=== PATIENT | male | born 1960 | race African-American/Black ===

== ENCOUNTER 2018-06-30 15:06 | Inpatient (IN) ==
[2018-06-30] MEDS ORDERED: ASPIRIN PO ONE (15:23)
[2018-06-30 15:50] LABS: BASO# 0.07 X1000 (0.0-0.2); BASO% 0.8 % (0.0-0.8); EOS# 0.23 X1000 (0.0-0.7); EOS% 2.7 % (0.0-10.0); HEMATOCRIT 49.4 % (42.0-52.0); HEMOGLOBIN 17.4 g/dL (14.0-18.0); IMM GRAN# 0.01 X1000 (0.0-0.04); IMM GRAN% 0.1 % (0.0-0.5); LYMPH# 3.15 X1000 (1.2-3.4); LYMPH% 36.7 % (20.5-51.1); MCH 29.4 PG (27-31); MCHC 35.2 g/dL (33-37); MCV 83.4 FL (81-99); MONO# 0.81 X1000 (0.11-0.59); MONO% 9.4 % (1.7-9.3); MPV 9.1 FL (7.4-10.4); NEUT# 4.31 X1000 (1.4-6.5); NEUT% 50.3 % (42.2-75.2); PLT 363 X1000 (130-400); RBC 5.92 XMIL (4.7-6.1); RDW 12.6 % (11.5-14.5); WBC 8.58 X1000 (4.8-10.8)
[2018-06-30] MEDS ORDERED: LABETALOL IV ONE (15:50)
[2018-06-30] MEDS ORDERED: NORVASC PO ONE (15:50)
[2018-06-30] MEDS ORDERED: NITROGLYCERIN TOP ONE (15:51)
[2018-06-30 16:15] LABS: INR 0.87; PROTIME 12.3 Seconds (11.0-16.0)
[2018-06-30 16:17] LABS: AGAP 13; ALKALINE PHOSPHATASE 67 U/L (32-122); BUN 15 mg/dL (8-22); CALCIUM 9.9 mg/dL (8.8-10.2); CHLORIDE 105 mmol/L (98-107); COSMO 284; CREATININE 1.1 mg/dL (0.7-1.2); ESTIMATED GFR > 60; GLUCOSE 102 mg/dL (70-104); GOT 16 U/L (10-34); GPT 16 U/L (10-44); MAGNESIUM 2.2 mg/dL (1.5-2.7); POTASSIUM 4.2 mmol/L (3.5-5.1); SODIUM 142 mmol/L (136-145); TCO2 23 mmol/L (25-35); TOTAL PROTEIN 6.9 g/dL (6.3-8.3)
--- NOTE | 2018-06-30 16:38 | Diag Imaging Result Doc PS360 ---
CHEST-2 VIEWS - 06/30/2018 INDICATION: chest pain COMPARISON: None FINDINGS: The lungs are normally expanded and clear. Heart size and mediastinal contours are normal. No pneumothorax or pleural effusion. IMPRESSION: Negative exam. Electronically signed by Js Healy 06/30/2018 4:36 PM
--- NOTE | 2018-06-30 17:16 | EKG Report ---
Test Performed on : 06/30/2018 3:51:04 PM Test Reason : left shoulder chest pain Blood Pressure : / mmHG Vent. Rate : 068 BPM Atrial Rate : 068 BPM P-R Int : 174 ms QRS Dur : 082 ms QT Int : 384 ms P-R-T Axes : 003 -02 065 degrees QTc Int : 408 ms Normal sinus rhythm. Normal ECG When compared with ECG of 17-NOV-2009 22:56, No significant change was found Unconfirmed Result
--- NOTE | 2018-06-30 18:23 | EKG Report ---
Test Performed on : 06/30/2018 6:07:27 PM Test Reason : repeat Blood Pressure : / mmHG Vent. Rate : 066 BPM Atrial Rate : 066 BPM P-R Int : 194 ms QRS Dur : 076 ms QT Int : 408 ms P-R-T Axes : 051 005 073 degrees QTc Int : 427 ms Normal sinus rhythm. Nonspecific T wave abnormality Abnormal ECG When compared with ECG of 30-JUN-2018 15:51, (Unconfirmed) No significant change was found Unconfirmed Result
--- NOTE | 2018-06-30 19:27 | HISTORY AND PHYSICAL ---
ADDENDUM: Patient seen examined by myself, full note dictated and discussed with nurse practitioner. Patient is a 58-year-old male who presented to the ER with shoulder pain. The patient notes that he has had shoulder pain off and on for several years it has finally become so severe that he is having difficulty moving. States when he moves it he develops chest pain and chest pain completely resolves upon rest. ER felt as though he had some component of coronary disease to his chest pain. When asked that patient be admitted to rule out. First set of enzymes are negative. We will admit and rule out DE. Most [facility] cc: Kurt George MD
--- NOTE | 2018-06-30 19:51 | HISTORY AND PHYSICAL ---
CHIEF COMPLAINT: Left shoulder pain. HISTORY OF PRESENT ILLNESS: This is a 58-year-old gentleman with a history of hypertension, PTSD and a prior left shoulder injury. He presented to the emergency room complaining of left shoulder pain that radiates down to his axillary area, as well as down his left arm to his hand. He rates the pain a 10/10 with any movement. States it is a 1-2/10 while sitting still. He is unable to lift his arm up secondary to pain. He does move his wrist and hand and he has good leather stitcher. He has good pulses with good capillary refill, with positive [*] to his left hand and fingers. He did state that when the pain was so severe that he broke out in a cold sweat. He denied any syncope, dizziness, palpitations, any shortness of breath. PAST MEDICAL HISTORY: Hypertension, PTSD. He is a . Prior left shoulder injury. PAST SURGICAL HISTORY: Hernia repair. SOCIAL HISTORY: He smokes about a half a pack a day. Denies alcohol or illicit drug use. ALLERGIES: No known drug allergies. HOME MEDICATIONS: A list will be obtained by the nursing staff and once verified we will review and restart as appropriate. REVIEW OF SYSTEMS: Discussed with patient with pertinent positives stated in the HPI. He denied any syncope, dizziness, any palpitations, any shortness of breath, cough, fever, chills, any night sweats, recent weight loss or weight gain, any nausea, vomiting, diarrhea, constipation, black or bloody vomitus or stools, any hematuria, dysuria, frequency, urgency. PHYSICAL EXAMINATION: GENERAL: This is a 58-year-old gentleman who is sitting in the stretcher in the emergency room in no distress. EYES: Pupils are equal, round, react to light. EOMs are intact. Sclerae are anicteric. HEENT: Head is normocephalic, atraumatic. Mucous membranes are moist. NECK: Supple, trachea midline. CARDIOVASCULAR: Regular rate and rhythm. S1 and S2 appreciated. He has no lower extremity edema with peripheral pulses palpable x 4 extremities. PULMONARY: Breath sounds are clear. No increased work of breathing noted. CHEST: Chest rises and falls symmetrically with respiration. Chest wall is nontender to palpation on the right. It is tender up around his shoulder and down toward his axillary area. GASTROINTESTINAL: Abdomen is soft, nontender, nondistended, with bowel sounds in all 4 quadrants. GENITOURINARY: He denies [*] nor suprapubic tenderness. NEUROLOGIC: He is alert oriented x3. SKIN: Warm and dry. LABORATORY: WBC is 8.5, with hemoglobin 17.4, hematocrit 49.4, platelets of 363,000. Sodium is 142, potassium 4.2, BUN 15, creatinine 1.1, with a glucose of 102. Troponin is negative. Chest x-ray: Lungs are normally expanded and clear. Heart size and mediastinal contours are normal. No pneumothorax or pleural effusion. EKG reveals normal sinus rhythm at a rate of 68. ASSESSMENT AND PLAN: 1. Left shoulder pain. 2. Left-sided chest pain. 3. History of hypertension. 4. Tobacco use and abuse. PLAN: The patient will be admitted to the Medical/Surgical floor at [place]. He will be placed on telemetry. We will continue to trend his troponins and cardiac profile. We will get an x-ray of his left shoulder. We will give Toradol 10 mg p.o. q.6 hours for pain, start aspirin 81 mg daily. We will identify his home antihypertensive medicine and we can restart. For DVT prophylaxis, will use SCDs and GI prophylaxis Prilosec. Further treatments pending hospital course. Dictated by CLINT Portillo for Kurt George MD This chart was documented by, CLINT Portillo and accurately reflects the services performed, treatment plan and medical decisions as attested by the providers signature Kurt George MD. cc: CLINT Portillo MD
[2018-06-30] MEDS ORDERED: NICODERM PATCH TD PRN (20:01)
[2018-06-30] MEDS ORDERED: TYLENOL PO PRN (20:01)
--- NOTE | 2018-06-30 20:49 | Diag Imaging Result Doc PS360 ---
SHOULDER-LEFT - 06/30/2018 INDICATION: pain TECHNIQUE: Three views COMPARISON: 09/09/2010 FINDINGS: There is no fracture or dislocation. There is stable moderate degeneration of the acromioclavicular joint and mild degeneration of the glenohumeral joint. IMPRESSION: Degenerative changes. No acute disease or change from prior. Electronically signed by Js Healy 06/30/2018 8:47 PM
[2018-06-30] MEDS: TORADOL PO PRN (20:54)
--- NOTE | 2018-06-30 21:05 | PROVIDER DOCUMENTATION ---
This chart was entered by Mel Zavala Scribe, acting as scribe for Radha Reyes MD. HPI-Chest Pain - General Chief Complaint: Chest Pain Stated Complaint: LEFT SHOULDER PAIN Time Seen by Provider: 06/30/18 15:27 Source: patient Allergies/Adverse Reactions: Patient Allergies Allergy/AdvReac Type Severity Reaction Status Date / Time doxycycline Allergy HIVES Verified 06/30/18 20:58 Home Medications: Home Medication List Medication Instructions Recorded Confirmed Last Taken Type NK [No Home Medications] 06/30/18 06/30/18 Unknown History - History of Present Illness-CP Nature of Presenting Problem: 58 year old male presents to the ER with complaint of chest pain that started yesterday. Pt states the pain comes and goes and last for 5 mins at a time. Pt also complains of SOB. Location: reports: central Chest Pain Radiation: reports: arms (left) Quality of Pain: reports: aching Severity in ED: mild Onset/Duration: 24 hours ago Timing: still present Associated Symptoms: reports: shortness of breath Nitro Today/Relief: no nitro taken today Similar Symptoms Previously?: Yes Review of Systems - Adult - REVIEW OF SYSTEMS - ADULT Constitutional: denies: chills, fever Eyes: reports: no symptoms reported Ears, Nose, Mouth & Throat: reports: no symptoms reported Cardiovascular: reports: chest pain. denies: palpitations, syncope Respiratory: reports: shortness of breath. denies: wheezing Gastrointestinal: denies: nausea, vomiting Genitourinary: reports: no symptoms reported Musculoskeletal: reports: no symptoms reported Integumentary: reports: no symptoms reported Neurological: reports: no symptoms reported Psychiatric: reports: no symptoms reported Endocrine: reports: no symptoms reported Hematologic/Lymphatic: reports: no symptoms reported Allergic/Immunologic: reports: no symptoms reported All Other Systems: Reviewed and Negative Past History - Adult - PAST MEDICAL HISTORY-ADULT Review of Records: reports: Nursing Assessment Review, Medications Reviewed Cardiovascular: reports: HTN Psychiatric: reports: ptsd - PRIOR SURGERIES/PROCEDURES Surgical/Procedure History: reports: hernia repair - IMMUNIZATION STATUS Childhood Immunizations: See Nurse Assessment Flu Vaccine: See Nurse Assessment Physical Exam-General - PHYSICAL EXAM-ADULT Initial Vital Signs Reviewed: Yes - CONSTITUTIONAL General Appearance: alert, mild distress - EYES Eyes: PERRL/EOMI, pink conjunctivae - HEAD, EARS, NOSE, MOUTH & THROAT HENMT: normocephalic/atraumatic, moist mucous membranes, normal ENT inspection - NECK Neck: non-tender, normal inspection - RESPIRATORY Respiratory: lungs clear, normal breath sounds - CARDIOVASCULAR Cardiovascular: normal peripheral pulses, regular rate, rhythm - MUSCULOSKELETAL Back Exam: no CVA tenderness, no vertebral tenderness Extremity: tenderness (left subacromial) - SKIN Integumentary: normal color, warm/dry Progress - PLAN OF CARE/RESULTS Progress/Plan/Lab Results: Vital Signs - 8 hr 06/30/18 15:18 06/30/18 16:30 06/30/18 17:30 Temperature 98 F Pulse Rate 79 67 68 Respiratory Rate 18 16 18 Blood Pressure 158/98 138/87 127/83 O2 Sat by Pulse Oximetry 98 97 98 06/30/18 17:39 Temperature Pulse Rate 71 Respiratory Rate 16 Blood Pressure 127/83 O2 Sat by Pulse Oximetry 98 Laboratory Results - last 24 hr 06/30/18 06/30/18 06/30/18 15:47 15:47 15:47 WBC 8.58 RBC 5.92 Hgb 17.4 Hct 49.4 MCV 83.4 MCH 29.4 MCHC 35.2 RDW Std Deviation 12.6 Plt Count 363 MPV 9.1 Immature Gran % (Auto) 0.1 Neut % (Auto) 50.3 Lymph % (Auto) 36.7 [place] % (Auto) 9.4 H Eos % (Auto) 2.7 Baso % (Auto) 0.8 Immature Gran # (Auto) 0.01 Neut # (Auto) 4.31 Lymph # (Auto) 3.15 [place] # (Auto) 0.81 H Eos # (Auto) 0.23 Baso # (Auto) 0.07 PT INR D-Dimer, Quantitative Sodium Potassium Chloride Carbon Dioxide Anion Gap BUN Creatinine Estimated GFR/1.73 m2 BUN/Creatinine Ratio Glucose Calculated Osmolality Calcium Magnesium Total Bilirubin AST ALT Alkaline Phosphatase Creatine Kinase 104 Troponin T < 0.010 Kjc-L-Ngktglqoily Pept Total Protein Albumin Globulin Albumin/Globulin Ratio 06/30/18 06/30/18 06/30/18 15:47 15:47 15:47 WBC RBC Hgb Hct MCV MCH MCHC RDW Std Deviation Plt Count MPV Immature Gran % (Auto) Neut % (Auto) Lymph % (Auto) [place] % (Auto) Eos % (Auto) Baso % (Auto) Immature Gran # (Auto) Neut # (Auto) Lymph # (Auto) [place] # (Auto) Eos # (Auto) Baso # (Auto) PT INR D-Dimer, Quantitative 0.30 Sodium 142 Potassium 4.2 Chloride 105 Carbon Dioxide 23 L Anion Gap 13 BUN 15 Creatinine 1.1 Estimated GFR/1.73 m2 > 60 BUN/Creatinine Ratio 14 Glucose 102 Calculated Osmolality 284 Calcium 9.9 Magnesium 2.2 Total Bilirubin 0.30 AST 16 ALT 16 Alkaline Phosphatase 67 Creatine Kinase Troponin T Nek-D-Uznqshikplj Pept 40 Total Protein 6.9 Albumin 4.0 Globulin 3.0 Albumin/Globulin Ratio 1.0 06/30/18 06/30/18 06/30/18 15:47 18:05 18:05 WBC RBC Hgb Hct MCV MCH MCHC RDW Std Deviation Plt Count MPV Immature Gran % (Auto) Neut % (Auto) Lymph % (Auto) [place] % (Auto) Eos % (Auto) Baso % (Auto) Immature Gran # (Auto) Neut # (Auto) Lymph # (Auto) [place] # (Auto) Eos # (Auto) Baso # (Auto) PT 12.3 INR 0.87 D-Dimer, Quantitative Sodium Potassium Chloride Carbon Dioxide Anion Gap BUN Creatinine Estimated GFR/1.73 m2 BUN/Creatinine Ratio Glucose Calculated Osmolality Calcium Magnesium Total Bilirubin AST ALT Alkaline Phosphatase Creatine Kinase 84 Troponin T < 0.010 Bog-E-Xavjzmpitsw Pept Total Protein Albumin Globulin Albumin/Globulin Ratio Orders Category Date Time Status Admit - [facility] Routine AdmDCTranf 06/30/18 18:05 Active Activity - Up with Assistance ORDERED Care 06/30/18 20:01 Active Apply Mechanical Device [QM] ORDERED Care 06/30/18 20:01 Active Cardiac Monitoring DIRECTED Care 06/30/18 15:23 Active Intake and Output-Strict ORDERED Care 06/30/18 20:01 Active Nursing- Obtain EKG once Care 06/30/18 15:23 Active Vital Signs Order Q 8-HR ASSESS Care 06/30/18 20:01 Active Z-Document. for Tele Applied ORDERED Care 06/30/18 20:01 Completed Heart Healthy Diet Diet 06/30/18 20:02 Active CHEST-2 VIEWS [RAD] Stat Exams 06/30/18 15:23 Completed SHOULDER-LEFT [RAD] Routine Exams 06/30/18 20:01 Completed BNP [PRO B-NATRIURETIC PEPTIDE] Stat Lab 06/30/18 15:47 Completed CBC WITH DIFF [HEME] Stat Lab 06/30/18 15:47 Completed CBC WITH NO DIFF [HEME] Routine Lab 07/01/18 06:00 Ordered CK PROFILE [SP CHEM] Q6H Lab 07/01/18 23:55 Ordered CK PROFILE [SP CHEM] Q6H Lab 07/02/18 05:55 Ordered CK PROFILE [SP CHEM] Stat Lab 06/30/18 15:47 Completed CK PROFILE [SP CHEM] Stat Lab 06/30/18 18:05 Completed COMPREHENSIVE METABOLIC PANEL [CHEM] Routine Lab 07/01/18 06:00 Ordered COMPREHENSIVE METABOLIC PANEL [CHEM] Stat Lab 06/30/18 15:47 Completed D-DIMER [COAG] Stat Lab 06/30/18 15:47 Completed MAGNESIUM [CHEM] Stat Lab 06/30/18 15:47 Completed PROTIME WITH INR [COAG] Stat Lab 06/30/18 15:47 Completed TROPONIN T Q6H Lab 06/30/18 23:55 Ordered TROPONIN T Q6H Lab 07/01/18 05:55 Ordered TROPONIN T Stat Lab 06/30/18 15:47 Completed TROPONIN T Stat Lab 06/30/18 18:05 Completed Acetaminophen [Tylenol] Med 06/30/18 20:01 Active 650 mg PO PRN PRN Amlodipine [Norvasc] Med 06/30/18 15:50 Discontinued 10 mg PO NOW ONE Aspirin Med 06/30/18 15:23 Discontinued 325 mg PO NOW ONE Aspirin Med 07/01/18 09:00 Active 81 mg PO DAILY Ketorolac [Toradol] Med 06/30/18 20:01 Active 10 mg PO Q6H PRN PRN Labetalol Med 06/30/18 15:50 Discontinued 10 mg IV NOW ONE Nicotine Patch [Nicoderm Patch] Med 06/30/18 20:01 Active 21 mg TD DAILY PRN PRN Nitroglycerin Med 06/30/18 15:51 Discontinued 0.5 inch TOP NOW ONE Omeprazole [Prilosec] Med 07/01/18 07:00 Active 40 mg PO DAILY@0700 Telemetry [OM.EQ] Routine Oth 06/30/18 20:01 Active EKG [EKG] Stat Ther 02/10/19 15:23 Draft EKG [EKG] Stat Ther 06/30/18 17:55 Draft Transfer/Admit Order [TRANSFER] Routine Transfer 06/30/18 18:06 Completed Heart score 4 Result Diagrams: 06/30/18 15:47 06/30/18 15:47 - REASSESSMENT Reassessment #1 Time Reassessed: 17:21 Status: improving (feels better, less chest pain, no SOB.) - EKG 1 Time of EKG reading by physician:: 15:56 EKG Read and Signed by:: Radha Dolan EKG Interpretation (*Must complete 3 of following elements*): Normal Rate: 68 Rhythm: normal sinus rhythm [place]: normal QRS: normal - CONSULTS/PCP/HOSPITALIST Notification #1 *Consult/PCP/Hospitalist*: Dr. George Time Discussed: 18:01 Consult Disposition: Will see in ED Departure - Departure Date of Disposition Decision: 06/30/18 Time of Disposition Decision: 18:01 DIAGNOSIS: Chest pain Qualifiers: Chest pain type: unspecified Qualified Code(s): R07.9 - Chest pain, unspecified Disposition: ADMITTED INPATIENT 09 Certified Medical Emergency: Emergent Condition: Stable - Critical Care Note This patient required my direct & personal management of CC.: No Attestation - Physician/ SHLOMO Attestation Patient care was provided by Advanced Practice Provider:: No The physician spent face to face time with patient:: Yes Advanced Practice Provider documentation review:: Supervising physician onsite and consulted in the evaluation and care of this patient. The physician did have a face to face encounter with the patient. This chart was documented by the indicated scribe, (Mel Zavala Scribe) and accurately reflects the services I performed and decisions made by me, Radha Reyes MD, as attested by the provider's signature.
--- NOTE | 2018-06-30 21:05 | ED EKG INTERP ---
This chart was entered by Rocio Grimes Scribe, acting as scribe for Radha Dolan MD. EKG Interpretation - EKG Time of EKG reading by physician:: 18:07 EKG Read and Signed by:: Radha Dolan EKG Interpretation (*Must complete 3 of following elements*): Abnormal (non specific twave abnormality) Rate: 66 Rhythm: nsr [place]: normal QRS: normal MD Interval: normal Attestation - Physician/ SHLOMO Attestation Patient care was provided by Advanced Practice Provider:: No The physician spent face to face time with patient:: Yes Advanced Practice Provider documentation review:: Supervising physician onsite and consulted in the evaluation and care of this patient. The physician did have a face to face encounter with the patient. This chart was documented by the indicated scribe, (Rocio Grimes, Mani) and accurately reflects the services I performed and decisions made by me, Radha Dolan MD, as attested by the provider's signature.
[2018-07-01] MEDS: TORADOL PO PRN ×2 (04:11→11:22)
[2018-07-01 06:09] LABS: HEMATOCRIT 42.6 % (42.0-52.0); HEMOGLOBIN 14.8 g/dL (14.0-18.0); MCH 29.6 PG (27-31); MCHC 34.7 g/dL (33-37); MCV 85.2 FL (81-99); MPV 9.2 FL (7.4-10.4); RDW 12.6 % (11.5-14.5); WBC 7.98 X1000 (4.8-10.8)
[2018-07-01 06:34] LABS: AGAP 10; ALBUMIN 3.4 g/dL (3.5-5.0); ALKALINE PHOSPHATASE 52 U/L (32-122); BUN 19 mg/dL (8-22); CALCIUM 9.3 mg/dL (8.8-10.2); CHLORIDE 108 mmol/L (98-107); COSMO 287; ESTIMATED GFR > 60; GLUCOSE 98 mg/dL (70-104); GOT 13 U/L (10-34); GPT 14 U/L (10-44); POTASSIUM 3.9 mmol/L (3.5-5.1); SODIUM 143 mmol/L (136-145); TCO2 25 mmol/L (25-35); TOTAL PROTEIN 5.7 g/dL (6.3-8.3)
[2018-07-01] MEDS ORDERED: PRILOSEC PO SCH (07:00)
[2018-07-01] MEDS ORDERED: ASPIRIN PO SCH (09:00)
[2018-07-01 15:16] VITALS: BP 136/77
--- NOTE | 2018-07-01 20:55 | DISCHARGE SUMMARY ---
ADMISSION DATE: 06/30/2018 DISCHARGE DATE: 07/01/2018 PRIMARY CARE PHYSICIAN: Dr. Bao Lagunas. ADMISSION DIAGNOSIS: 1. Left shoulder pain. 2. Left-sided chest pain. 3. History of hypertension. 4. Tobacco abuse and use. DISCHARGE DIAGNOSIS: 1. Left shoulder pain. 2. Left chest pain resolved. 3. Hypertension. 4. Tobacco use and abuse. SUMMARY OF FINDINGS: This is a 58-year-old male who presents to the emergency room with complaints of left shoulder pain that radiated down to his axillary area and down his left arm and hand, rated a 10/10 with movement, unable to lift his arm secondary to pain. Does move his wrist and hand and has good counter pocket sewer. Had good pulses, good capillary refill. Stated that when the pain was so severe he did break out in a cold sweat. We trended his cardiac enzymes that were negative x4 sets. We did do a left shoulder x-ray that showed degenerative changes, no acute disease or change from prior. States that he has had the shoulder pain on and off for several years and had finally become so severe that he had difficulty moving. When he moved he developed the chest pain and the chest pain completely resolved upon rest and so it is felt this is more of a left shoulder degenerative disease more than heart issue. It is felt that he can safely be discharged home to follow up with his primary care physician. DISCHARGE MEDICATIONS: Include Toradol 10 mg p.o. q.6 hours p.r.n. #30 with no refill, amlodipine 5 mg p.o. daily, lisinopril 20 mg p.o. daily, metoprolol 25 mg p.o. daily, paroxetine 20 mg p.o. daily and simvastatin 40 mg p.o. at bedtime. FOLLOWUP: He will follow with primary care physician in 1 to 2 weeks and call the office for an appointment. All discharge instructions have been reviewed with the patient and he verbalizes understanding. Dictated by CLINT Fox for Rajendra Badillo MD cc: MD Rajendra Bright MD Gregory S. Cheatham, MD
--- NOTE | 2018-07-02 03:36 | DISCHARGE SUMMARY ---
ADMISSION DATE: 06/30/2018 DISCHARGE DATE: 07/01/2018 DISCHARGE ADDENDUM: The patient was admitted for atypical chest pain. He has fairly clearly reproducible chest pain in his left arm with palpation. He has a history of injury. He has arthritis on his x-ray. It is felt that this is likely atypical chest pain. However, he does have some distinctive risk factors. He is a smoker. He is hypertensive. He is dyslipidemic. His brother had a heart attack when he was 46, so I do recommend noninvasive testing, just to complete his workup. He was given a prescription for Toradol as needed for his pain, and then follow up chest pain. [facility] We will attempt to set him up for an outpatient stress test. Return for worsening chest pain. cc: MD Kurt Stevens MD
== END 2018-07-01 18:02 | disposition home or self-care (01) | DRG 313 ==
LOC: P.ED 15:06 → P.MEDSURG 19:46 → SUATTDRO 19:46
PROVIDERS: ATTEND Internal Medicine
CPT/HCPCS: 71020; 71046; 73030; 80053; 82550; 83735; 83880; 84484; 85025; 85027; 85379; 85610; 93005; 96374; 99285; A9270